=== PATIENT | female | born 1960 | race Caucasian/White ===

== ENCOUNTER 2023-08-09 04:19 | Emergency (ER) | payer OTHER ==
[~2023-08-09] VITALS: Ht 157.5 cm; Wt 99.8 kg
[2023-08-09 05:28] VITALS: BP 171/102
[2023-08-09] MEDS ORDERED: CLIN300 PO (06:35)
== END 2023-08-09 06:50 | disposition home or self-care (01) ==
LOC: ER 04:19
DX: K04.7 Periapical abscess without sinus (principal)
CPT/HCPCS: 99282; A9270